=== PATIENT | male | born 1950 | race Caucasian/White ===

== ENCOUNTER → 2016-04-18 | Outpatient (CLI) | payer MEDICARE, OTHER ==
[~2016-04-18] MED LIST: FLONASEALLERGY NS; MULTI VITAMINS1 TAB PO; NASAL MOISTURIZ45 ML NS; NORCO 325 MG-7.1 TAB PO; PRILOSEC 20MG20 MG PO; PROAIR HFA0.09 MG/AC IH; VITAMIN C500 MG PO
== END ==
LOC: COL.RAD 12:21
PROVIDERS: Internal Medicine Pulmonary Disease
DX: R06.02 Shortness of breath (principal); R91.8 Other nonspecific abnormal finding of lung field
CPT/HCPCS: Q9967

== ENCOUNTER 2016-04-19 07:43 | Outpatient (CLI) | payer MEDICARE, OTHER ==
[~2016-04-19] VITALS: Ht 185.4 cm; Wt 86.6 kg
[~2016-04-19 07:43] MED LIST changes: -NASAL MOISTURIZ45 ML NS; -PROAIR HFA0.09 MG/AC IH
[2016-04-19] MEDS ORDERED: FLONASEALLERGY NS (08:43)
[2016-04-19] MEDS ORDERED: NASAL MOISTURIZ45 ML NS (08:44)
[2016-04-19] MEDS ORDERED: PROAIR HFA0.09 MG/AC IH (08:44)
[2016-04-19 08:46] VITALS: BP 130/77; PULSE 64; TEMP 98
[2016-04-19 09:20] VITALS: BP 117/91; PULSE 64; TEMP 97.9
[2016-04-19 09:38] VITALS: BP 140/80; PULSE 63
[2016-04-19 10:59] VITALS: BP 152/87; PULSE 68
== END 2016-04-19 09:52 | disposition home or self-care (01) ==
LOC: SDCO 07:43
DX: J90 Pleural effusion, not elsewhere classified (principal); R06.00 Dyspnea, unspecified; C34.91 Malignant neoplasm of unspecified part of right bronchus or lung